=== PATIENT | male | born 1965 | race Caucasian/White ===

== ENCOUNTER 2025-01-31 16:51 | Inpatient (IN) | payer MEDICAID, SELFPAY ==
[~2025-01-31] VITALS: Ht 177.8 cm; Wt 61.4 kg
[2025-01-31] MEDS: ONDANSETRON 4MG/2ML VIAL IV ONE (17:32)
[2025-01-31] MEDS: MORPHINE 4 MG/ML 1 ML VIAL IV ONE (17:32)
[2025-01-31] MEDS ORDERED: HOME MED LIST COMPLETE! XX SCH (19:00)
[2025-01-31] MEDS ORDERED: ONDANSETRON 4MG/2ML VIAL IV PRN (19:40)
[2025-01-31] MEDS ORDERED: ACETAMINOPHEN 325 MG TAB PO PRN (19:40)
[2025-01-31] MEDS ORDERED: MOM 30 ML SUSPENSION UDC PO PRN (19:40)
[2025-01-31] MEDS ORDERED: MORPHINE 4 MG/ML 1 ML VIAL IV PRN (19:40)
[2025-01-31] MEDS: KETOROLAC 30 MG/ML 1 ML VIAL IV ONE (20:20)
[2025-01-31] MEDS: NS (Normal Saline) 0.9% 1,000 ML IV SCH (20:20)
[2025-01-31] MEDS: predniSONE 20 MG TAB PO SCH (20:21)
[2025-01-31] MEDS: IPRATROPIUM 0.5 MG/ALBUTEROL 2.5 MG INH SOL UD 3 ML NEB SCH (20:27)
[2025-01-31 23:12] VITALS: BP 119/58; TEMP 98.3; O2SAT 92
[2025-02-01] VITALS (8 sets, daily range): BP systolic 99–130; BP diastolic 50–76; TEMP 97.7–98.7; O2SAT 90–97
[2025-02-01 06:35] LABS: PLATELET COUNT, AUTOMATED 280 10^3/uL (150-450)
[2025-02-01 07:01] LABS: ALT/SGPT 9.0 U/L (7.0-40); AST/SGOT 15.0 U/L (<34); CALCIUM LEVEL 8.8 MG/DL (8.3-10.6); CARBON DIOXIDE LEVEL 26.0 MMOL/L (20-31); CHLORIDE LEVEL 102.0 MMOL/L (98-107); CREATININE FOR GFR 1.01 MG/DL (0.70-1.30); GLOMERULAR FILTRATION RATE 84.6 (>49); MAGNESIUM LEVEL 2.0 MG/DL (1.8-2.4); POTASSIUM SERUM 4.9 MMOL/L (3.5-5.1); SODIUM LEVEL 135.0 MMOL/L (136-145)
[2025-02-01] MEDS ORDERED: NICOTINE 21 MG/24 HR 1 EA TRANSDERMAL TD PRN (08:20)
[2025-02-01] MEDS ORDERED: NICOTINE POLACRILEX 2 MG GUM PO PRN (08:20)
[2025-02-01] MEDS ORDERED: LIDOCAINE 1% SDV 5 ML VIAL As Ordered ONE (08:21)
[2025-02-01] MEDS ORDERED: ROPIvacaine 0.5% 30ML VIAL As Ordered ONE (08:22)
[2025-02-01] MEDS ORDERED: ENOXAPARIN 40 MG/0.4 ML SYRINGE (J1650 PER 10MG) SC SCH (09:00)
[2025-02-01] MEDS ORDERED: ASPIRIN 81 MG CHEWABLE TABLET PO SCH (09:00)
[2025-02-01] MEDS: TRANEXAMIC ACID 100 MG/ML 10ML VIAL As Ordered ONE (09:51)
[2025-02-01] MEDS ORDERED: ROCURONIUM BROMIDE 50MG/5ML VIAL As Ordered ONE (10:01)
[2025-02-01] MEDS ORDERED: LIDOCAINE 2% 100 MG/5 ML SDV (FOR ANES.) As Ordered ONE (10:01)
[2025-02-01] MEDS ORDERED: dexAMETHasone 4 MG/ML 1 ML VIAL As Ordered ONE (10:01)
[2025-02-01] MEDS ORDERED: ONDANSETRON 4MG/2ML VIAL As Ordered ONE (10:01)
[2025-02-01] MEDS ORDERED: MIDAZOLAM INJ 2 MG/2 ML VIAL As Ordered ONE (10:01)
[2025-02-01] MEDS: LIDOCAINE W/EPINEPHrine 1% 20 ML VIAL As Ordered ONE (10:07)
[2025-02-01] MEDS ORDERED: ACETAMINOPHEN 1000MG/100ML IV BAG As Ordered ONE (10:08)
[2025-02-01] MEDS ORDERED: SUGAMMADEX SODIUM 200 MG/2 ML VIAL As Ordered ONE (10:23)
[2025-02-01] MEDS ORDERED: HYDROmorphone HCL 2 MG/ML 1 ML VIAL As Ordered ONE (10:26)
[2025-02-01] MEDS ORDERED: MORPHINE 2 MG/ML 1 ML VIAL IV PRN (10:35)
[2025-02-01] MEDS ORDERED: ONDANSETRON 4MG/2ML VIAL IV PRN (10:35)
[2025-02-01] MEDS: HYDROMORPHONE HCL 0.5 MG/0.5 ML SYRINGE IV PRN (10:56)
[2025-02-01] MEDS ORDERED: LR 1,000 ML IV SCH (11:00)
[2025-02-01] MEDS: FAMOTIDINE 20 MG TAB PO SCH (13:29)
[2025-02-01] MEDS: ACETAMINOPHEN 500 MG TAB PO SCH (13:30)
[2025-02-01] MEDS: ceFAZolin SODIUM 2 GM in DEXTROSE 5% (D5W) ADV/MINI-BAG 50 ML IV SCH (18:31)
[2025-02-01] MEDS: KETOROLAC 30 MG/ML 1 ML VIAL IV PRN (18:34)
[2025-02-01] MEDS: ASPIRIN 81 MG ENTERIC TABLET PO SCH (20:42)
[2025-02-02 00:53] VITALS: BP 105/58; TEMP 98; O2SAT 96
[2025-02-02 04:52] VITALS: BP 127/61; TEMP 98.9; O2SAT 94
[2025-02-02 09:37] LABS: PLATELET COUNT, AUTOMATED 278 10^3/uL (150-450)
[2025-02-02 11:00] VITALS: BP 123/78; TEMP 99.7; O2SAT 96
[2025-02-02] MEDS ORDERED: ASPI81TAEC PO (12:12)
[2025-02-02] MEDS ORDERED: ACET-683 PO (12:12)
[2025-02-02 15:47] LABS: CALCIUM LEVEL 8.9 MG/DL (8.3-10.6); CARBON DIOXIDE LEVEL 27 MMOL/L (20-31); CHLORIDE LEVEL 102 MMOL/L (98-107); CREATININE FOR GFR 0.94 MG/DL (0.70-1.30); GLOMERULAR FILTRATION RATE > 90.0 (>49); POTASSIUM SERUM 4.9 MMOL/L (3.5-5.1); SODIUM LEVEL 138 MMOL/L (136-145)
== END 2025-02-02 14:57 | disposition home or self-care (01) | DRG 308 ==
LOC: M ED 16:51 → M ED INP 19:39 → M MS5PR 21:30
PROVIDERS: ADMIT Internal Medicine; ATTEND Student in an Organized Health Care Education/Training Program
PROC: 0QS706Z Reposition Left Upper Femur with Intramedullary Internal Fixation Device, Open Approach (ICD-10-PCS; principal; 2025-02-01 10:00)
DX: S72.142A Displaced intertrochanteric fracture of left femur, initial encounter for closed fracture (principal); J44.9 Chronic obstructive pulmonary disease, unspecified; R09.02 Hypoxemia; F17.200 Nicotine dependence, unspecified, uncomplicated; Z55.0 Illiteracy and low-level literacy; W12.XXXA Fall on and from scaffolding, initial encounter; Y92.009 Unspecified place in unspecified non-institutional (private) residence as the place of occurrence of the external cause; Y93.89 Activity, other specified; Y99.8 Other external cause status

== ENCOUNTER → 2025-02-15 | Outpatient (CLI) | payer MEDICAID ==
[~2025-02-15] MED LIST: ACET-683 PO; ASPI81TAEC PO
== END ==
LOC: M SOG 07:35
PROVIDERS: ATTEND Physician Assistant
DX: M25.552 Pain in left hip (principal)